=== PATIENT | female | born 1945 | race Caucasian/White ===

== ENCOUNTER 2018-07-11 05:51 | Day surgery (SDC) | payer OTHER ==
[2018-07-11] MEDS ORDERED: EPINEPHrine 1 MG INJ (06:43)
[2018-07-11] MEDS ORDERED: TOBRAMYCIN/DEXAMETH 3.5 GM OPH OINT (06:45)
[2018-07-11] MEDS ORDERED: DEXAMETHASONE 4 MG/ML 1 ML INJ (06:45)
[2018-07-11] MEDS ORDERED: TETRACAINE 0.5% 4 ML OPH (06:46)
[2018-07-11] MEDS ORDERED: CARBACHOL 0.01% 1.5 ML OPH INJ (06:46)
[2018-07-11] MEDS ORDERED: BACITRACIN 3.5 GM OPH OINT RIGHT EYE (07:00)
[2018-07-11] MEDS ORDERED: LIDOCAINE 4% (MPF) 5 ML INJ INJ (07:00)
[2018-07-11] MEDS ORDERED: MOXIFLOXACIN 0.5% 3 ML OPH RIGHT EYE (07:00)
[2018-07-11] MEDS: PHENYLephrine 10% 5 ML OPH RIGHT EYE (07:13)
[2018-07-11] MEDS: MOXIFLOXACIN 0.5% 3 ML OPH RIGHT EYE (07:14)
[2018-07-11] MEDS: DICLOFENAC 0.1% 2.5 ML OPH RIGHT EYE (07:14)
[2018-07-11] MEDS: TROPICAMIDE 1% 3 ML OPH RIGHT EYE (07:17)
[2018-07-11 07:20] LABS: POTASSIUM 4.4 mmol/L (3.5-5.1)
[2018-07-11] MEDS ORDERED: ONDANSETRON 4 MG INJ IV (07:30)
[2018-07-11] MEDS ORDERED: ALBUTEROL 0.083% (NEB) 2.5 MG/3 ML AMP HHN (07:30)
[2018-07-11] MEDS ORDERED: hydrALAzine 20 MG INJ IV (07:30)
[2018-07-11] MEDS ORDERED: OXYCODONE/ACETAMINOPHEN (5/325) TAB PO (07:30)
[2018-07-11] MEDS ORDERED: ACETAMINOPHEN 325 MG TAB PO (07:30)
[2018-07-11] MEDS ORDERED: DIPHENHYDRAMINE 50 MG INJ IV (07:30)
[2018-07-11] MEDS ORDERED: ACETAMINOPHEN 500 MG TAB PO (07:30)
[2018-07-11] MEDS ORDERED: LABETALOL HCL 20MG INJ IV (07:30)
[2018-07-11] MEDS ORDERED: FENTAnyl 50 MCG/ML VIAL (07:35)
[2018-07-11] MEDS ORDERED: LIDOCAINE 2% (SDV) 5 ML INJ (08:17)
[2018-07-11] MEDS: TETRACAINE 0.5% 4 ML OPH RIGHT EYE (09:12)
[2018-07-11] MEDS: LIDOCAINE 1%/EPI 30 ML INJ (09:12)
[2018-07-11] MEDS: ACETAZOLAMIDE 250 MG TAB PO (09:20)
== END 2018-07-11 10:22 | disposition home or self-care (01) ==
LOC: SDS 05:51
DX: H26.8 Other specified cataract (principal); E03.9 Hypothyroidism, unspecified; I10 Essential (primary) hypertension; Z86.73 Personal history of transient ischemic attack (TIA), and cerebral infarction without residual deficits; Z87.891 Personal history of nicotine dependence
CPT/HCPCS: 66984; 84132

== ENCOUNTER 2018-08-15 10:39 | Day surgery (SDC) | payer OTHER ==
[2018-08-15 11:43] LABS: ADD MAN DIFF? NO
[2018-08-15 11:50] LABS: BASOPHIL # 0.1 10^3/ul (0.0-0.1); BASOPHILS % 0.6 % (0.0-2.0); EOSINOPHILS # 0.1 10^3/ul (0.0-0.5); EOSINOPHILS % 1.5 % (0.0-7.0); HEMATOCRIT 39.9 % (37.0-47.0); LYMPHOCYTES # 2.5 10^3/ul (0.8-2.9); LYMPHOCYTES % 29.5 % (15.0-51.0); MEAN CORPUSCULAR HEMOGLOBIN 30.2 pg (29.0-33.0); MEAN CORPUSCULAR HGB CONC 32.6 g/dl (32.0-37.0); MEAN CORPUSCULAR VOLUME 92.8 fl (82.0-101.0); MEAN PLATELET VOLUME 11.5 fl (7.4-10.4); MONOCYTE # 0.6 10^3/ul (0.3-0.9); MONOCYTES % 7.1 % (0.0-11.0); NEUTROPHIL # 5.2 10^3/ul (1.6-7.5); NEUTROPHILS % 60.8 % (39.0-77.0); PLATELET COUNT 242 10^3/UL (140-415); RED CELL DISTRIBUTION WIDTH 12.5 % (11.5-14.5)
[2018-08-15 11:50] LABS: WHITE BLOOD COUNT 8.6 10^3/ul (4.8-10.8)
[2018-08-15] MEDS: TETRACAINE 0.5% 4 ML OPH RIGHT EYE (11:56)
[2018-08-15] MEDS: PHENYLephrine 10% 5 ML OPH OPER (11:57)
[2018-08-15] MEDS: TROPICAMIDE 1% 15 ML OPH OPER (11:58)
[2018-08-15] MEDS: DICLOFENAC 0.1% 2.5 ML OPH OPER (11:58)
[2018-08-15] MEDS: MOXIFLOXACIN 0.5% 3 ML OPH OPER (11:59)
[2018-08-15] MEDS ORDERED: BACITRACIN 3.5 GM OPH OINT RIGHT EYE (12:00)
[2018-08-15] MEDS: LIDOCAINE 4% (MPF) 5 ML INJ OPER (12:00)
[2018-08-15 12:06] LABS: ANION GAP 6 (5-13); CALCIUM 9.6 mg/dl (8.4-10.2); CARBON DIOXIDE 28 mmol/L (21-31); CHLORIDE 108 mmol/L (97-110); CREATININE 0.86 mg/dl (0.44-1.00); GLUCOSE 94 mg/dl (70-220); POTASSIUM 4.7 mmol/L (3.5-5.1); SODIUM 142 mmol/L (135-144)
[2018-08-15 12:09] LABS: BLOOD UREA NITROGEN 27 mg/dl (7-20)
[2018-08-15] MEDS: TETRACAINE 0.5% 4 ML OPH LEFT EYE (12:30)
[2018-08-15] MEDS: SODIUM HYALURONATE 14 MG/ML SYG IO (12:30)
[2018-08-15] MEDS ORDERED: FENTAnyl 50 MCG/ML VIAL IV (12:30)
[2018-08-15] MEDS: LIDOCAINE 1.5%/EPI MPF (SDV) 30 ML VIAL INJ (12:30)
[2018-08-15] MEDS ORDERED: ONDANSETRON 4 MG INJ IV (12:30)
[2018-08-15] MEDS: ERYTHROMYCIN 1 GM OPH OINT RIGHT EYE (12:30)
[2018-08-15] MEDS ORDERED: MIDAZOLAM 1 MG/ML 2 ML INJ (12:42)
[2018-08-15] MEDS ORDERED: FENTAnyl 50 MCG/ML VIAL (12:42)
[2018-08-15] MEDS: TOBRAMYCIN 0.3% 3.5 GM OPH OINT LEFT EYE (13:25)
[2018-08-15] MEDS: ACETAZOLAMIDE 250 MG TAB PO (13:58)
[2018-08-15] MEDS ORDERED: SODIUM HYALURONATE 14 MG/ML SYG (14:51)
== END 2018-08-15 14:41 | disposition home or self-care (01) ==
LOC: SDS 10:39
DX: H26.8 Other specified cataract (principal); H21.81 Floppy iris syndrome; I10 Essential (primary) hypertension; E78.5 Hyperlipidemia, unspecified; E03.9 Hypothyroidism, unspecified
CPT/HCPCS: 66984; 80048; 85025; 93005